=== PATIENT | male | born 1960 | race Caucasian/White ===

== ENCOUNTER → 2020-05-28 | Day surgery (SDC) | payer OTHER ==
[~2020-05-28] MED LIST: ASPIRIN325 MG PO; COZAAR100 MG PO; FEOSOL325 MG PO; FISH OIL 1,0001 EAC4 PO; NORVASC5 MG PO; PERCOCET 7.5/321 TAB PO; ULTRA-LIGHT RO1 EACH XX; XARELTO10 MG PO
== END | disposition home or self-care (01) ==
LOC: FAS 06:01
DX: M24.662 Ankylosis, left knee (principal); I10 Essential (primary) hypertension; G47.30 Sleep apnea, unspecified; Z79.82 Long term (current) use of aspirin; Z96.652 Presence of left artificial knee joint
CPT/HCPCS: J0360; J1170; J2250; J2704; J2795; J7120

== ENCOUNTER → 2020-06-29 | Day surgery (SDC) | payer OTHER | END | disposition home or self-care (01) | LOC: FAS 06:29 | DX: K64.0 First degree hemorrhoids (principal); K57.30 Diverticulosis of large intestine without perforation or abscess without bleeding; D12.3 Benign neoplasm of transverse colon; M10.9 Gout, unspecified; I10 Essential (primary) hypertension; E29.1 Testicular hypofunction; G47.33 Obstructive sleep apnea (adult) (pediatric); Z79.899 Other long term (current) drug therapy; N28.1 Cyst of kidney, acquired; Z96.652 Presence of left artificial knee joint; Z98.890 Other specified postprocedural states; Z20.822 Contact with and (suspected) exposure to COVID-19 | CPT/HCPCS: J2704; J7120 ==

== ENCOUNTER 2021-10-21 16:26 | Emergency (ER) | payer OTHER | END 2021-10-21 18:24 | disposition home or self-care (01) | LOC: FER 16:26 | DX: S01.01XA Laceration without foreign body of scalp, initial encounter (principal); I10 Essential (primary) hypertension; V69.49XA Driver of heavy transport vehicle injured in collision with other motor vehicles in traffic accident, initial encounter | CPT/HCPCS: 70450 ==